=== PATIENT | female | born 1990 | race Caucasian/White ===

== ENCOUNTER 2017-07-08 20:17 | Emergency (ER) | payer OTHER ==
[~2017-07-08] VITALS: Ht 167.6 cm; Wt 77.3 kg
[2017-07-08 20:27] VITALS: BP 123/75; TEMP 99.3
[2017-07-08] MEDS ORDERED: NEXPLANON68 MG ID (20:30)
[2017-07-08 22:46] VITALS: PULSE 102
== END 2017-07-08 22:47 | disposition home or self-care (01) ==
LOC: COL.ER 20:17
DX: J06.9 Acute upper respiratory infection, unspecified (principal)